=== PATIENT | female | born 1975 | race Caucasian/White ===

== ENCOUNTER → 2021-01-26 | Outpatient (CLI) | payer OTHER | LOC: CT 13:00 | DX: R19.5 Other fecal abnormalities (principal); R63.4 Abnormal weight loss; R10.84 Generalized abdominal pain; K63.89 Other specified diseases of intestine | CPT/HCPCS: Q9963; Q9967 ==

== ENCOUNTER → 2021-02-27 | Day surgery (SDC) | payer OTHER ==
[~2021-02-27] MED LIST: ADVAIR 500-501 EACH INH; ALBUTEROL2.5 MG/3 M INH; DOXYCYCLINE HY100 M2 PO; FEROSUL325 MG PO; LORATADINE10 MG PO; PROAIR HFA8.5 GM INH
== END | disposition home or self-care (01) ==
LOC: OR 08:47
DX: K62.5 Hemorrhage of anus and rectum (principal); C17.9 Malignant neoplasm of small intestine, unspecified; K44.9 Diaphragmatic hernia without obstruction or gangrene; K64.4 Residual hemorrhoidal skin tags; I25.10 Atherosclerotic heart disease of native coronary artery without angina pectoris; J45.909 Unspecified asthma, uncomplicated; G47.30 Sleep apnea, unspecified; Z99.89 Dependence on other enabling machines and devices; K21.9 Gastro-esophageal reflux disease without esophagitis; Z88.5 Allergy status to narcotic agent; Z88.8 Allergy status to other drugs, medicaments and biological substances; Z88.0 Allergy status to penicillin; Z79.899 Other long term (current) drug therapy
CPT/HCPCS: J2001; J2704; J7120

== ENCOUNTER 2021-03-10 16:41 | Emergency (ER) | payer OTHER ==
[2021-03-10] MEDS ORDERED: DOXYCYCLINE HY100 MG PO (20:11)
== END 2021-03-10 20:52 | disposition home or self-care (01) ==
LOC: ER1 16:41
DX: L03.115 Cellulitis of right lower limb (principal); M79.661 Pain in right lower leg
CPT/HCPCS: 96372; 99283; J1885

== ENCOUNTER 2021-03-20 13:06 | Emergency (ER) | payer OTHER ==
[~2021-03-20 13:06] MED LIST changes: +DOXYCYCLINE HY100 MG PO
[2021-03-20] MEDS ORDERED: BACTRIM DS TAB1 EACH PO (15:30)
[2021-04-05] MEDS ORDERED: VENLAFAXINE H37.5 M1 PO (07:03)
[2021-04-05] MEDS ORDERED: DULOXETINE HCL30 MG PO (07:12)
[2021-04-05] MEDS ORDERED: ROBAXIN 750 MG750 MG PO (07:12)
[2021-04-05] MEDS ORDERED: NAPROXEN375 MG PO (07:13)
[2021-04-05] MEDS ORDERED: PANTOPRAZOLE SO20 MG PO (07:13)
[2021-04-05] MEDS ORDERED: IBUPROFEN800 MG PO (08:34)
[2021-04-05] MEDS ORDERED: PERCOCET 5/325 T1 EA PO (09:54)
== END 2021-03-20 16:02 | disposition home or self-care (01) ==
LOC: ER1 13:06
DX: L98.9 Disorder of the skin and subcutaneous tissue, unspecified (principal); Z91.040 Latex allergy status; I25.2 Old myocardial infarction; I51.9 Heart disease, unspecified; F17.200 Nicotine dependence, unspecified, uncomplicated
CPT/HCPCS: 99283

== ENCOUNTER → 2021-03-22 | Outpatient (CLI) | payer OTHER ==
[~2021-03-22] MED LIST changes: +BACTRIM DS TAB1 EACH PO; +DULOXETINE HCL30 MG PO; +IBUPROFEN800 MG PO; +NAPROXEN375 MG PO; +PANTOPRAZOLE SO20 MG PO; +PERCOCET 5/325 T1 EA PO; +ROBAXIN 750 MG750 MG PO; +VENLAFAXINE H37.5 M1 PO
== END ==
LOC: EXRD 14:58
DX: R06.00 Dyspnea, unspecified (principal); R91.8 Other nonspecific abnormal finding of lung field
CPT/HCPCS: 71046

== ENCOUNTER → 2021-04-05 | Day surgery (SDC) | payer OTHER | END | disposition home or self-care (01) | LOC: OR 05:52 | DX: D03.71 Melanoma in situ of right lower limb, including hip (principal); I25.2 Old myocardial infarction; J45.909 Unspecified asthma, uncomplicated; G47.30 Sleep apnea, unspecified; K21.9 Gastro-esophageal reflux disease without esophagitis; E66.01 Morbid (severe) obesity due to excess calories; F17.200 Nicotine dependence, unspecified, uncomplicated; Z88.0 Allergy status to penicillin; Z99.89 Dependence on other enabling machines and devices; Z88.5 Allergy status to narcotic agent; Z88.8 Allergy status to other drugs, medicaments and biological substances; Z79.1 Long term (current) use of non-steroidal anti-inflammatories (NSAID); Z79.2 Long term (current) use of antibiotics; Z79.899 Other long term (current) drug therapy; Z85.068 Personal history of other malignant neoplasm of small intestine | CPT/HCPCS: 93005; J1100; J1170; J2001; J2250; J2405; J2704; J3010; J7120 ==